=== PATIENT | female | born 1985 | race Caucasian/White ===

== ENCOUNTER 2017-07-11 16:14 | Emergency (ER) | payer BC ==
[~2017-07-11] VITALS: Ht 165.1 cm; Wt 84.8 kg
[~2017-07-11 16:14] MED LIST: ALBU4TAB10 PO
[2017-07-11 16:16] VITALS: TEMP 37; Ht 165.1 cm; Wt 84.8 kg
[2017-07-11] MEDS ORDERED: VNTHFA/IN INH (16:37)
[2017-07-11] MEDS ORDERED: PRED-301 PO (16:38)
[2017-07-11] MEDS ORDERED: METH2.5S SC (16:44)
[2017-07-11] MEDS ORDERED: ADVIN25/60 INH (16:44)
[2017-07-11] MEDS ORDERED: [UNRECOGNIZED DRUG - CODE] PO (16:45)
--- NOTE | 2017-07-11 17:35 | EMERGENCY ROOM VISIT NOTE ---
History First contact with patient: 17:04 Chief Complaint: ARM PAIN Stated Complaint: TINGLING,PINS AND NEEDLES FROM ELBOW TO FINGERTIPS History of Present Illness The patient is a 31 year old female who presents to the Emergency Room with complaints of tingling and numbness of both arms, hands and fingers. She also reports notable pain in the wrists and elbows. She denies any pain extending into the upper arms, shoulders or neck. The patient reports a long history of rheumatoid arthritis. She is currently under the management of Dr. Vidal. She is currently on methotrexate and chronic prednisone. Should has had prior RA flares. 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 Her symptoms worsened after doing so. The patient is a side sleeper, and usually sleeps with her arms under and over her pillow. She denies any recent trauma to the elbows, forearms or wrists. She reports that most of the tingling and numbness is along the ulnar aspect of the elbow, forearm and hand. She reports weakened enterprise business architect strength bilaterally. The patient denies any other recent infections, fevers or chills. The patient is [id number], and rates her discomfort a 7 out of 10. Review of Systems 10 system review was performed and was negative except for pertinent positives and negatives as indicated in history of present illness Past Medical/Surgical History Medical Problems: (1) Asthma, Unspecified (2) Rheumatoid arthritis Surgical Problems: (1) History of appendectomy (2) History of cholecystectomy Family History FH: cancer FH: diabetes mellitus FH: hypertension Social History Smoking Status: Former Smoker Alcohol Use: none Marital Status: single, in relationship Housing Status: lives with significant other Occupation Status: employed Current/Historical Medications Scheduled Methotrexate (Xatmep), 1 DOSE SC WK Scheduled PRN Albuterol Hfa (Ventolin Hfa), 2-4 PUFFS INH Q6H PRN for SOB/Wheezing Aspirin (Flip Aspirin), 3 TABS PO DAILY PRN for Pain or Fever Fluticasone Prop/Salmeterol (Advair Diskus 250/50 60 Dose), 1 PUFF INH BID PRN for SOB/Wheezing Prednisone (Prednisone), 5-20 MG PO DAILY PRN for Pain Physical Exam Vital Signs Date Time Temp Pulse Resp B/P (MAP) Pulse Ox O2 Delivery O2 Flow Rate FiO2 07/11/17 16:16 37.0 99 16 142/91 99 Room Air Physical Exam CONSTITUTIONAL: Healthy and well nourished. Alert and oriented X 3 with positive affect. Patient appears in mild discomfort. HEENT: Normocephalic, atraumatic. Pupils equal, round and reactive. NECK: Full active range of motion without discomfort. RESPIRATORY: Clear to auscultation bilaterally with no wheezing, crackles, rhonchi or stridor. CARDIOVASCULAR: Regular rate and rhythm with no murmurs, rubs or gallops. MUSCULOSKELETAL: Examination shows mild edema of bilateral arms, wrists and hands. Positive compression test and positive Tinel at the cubital tunnel. Positive Phalen's and positive Tinel at the carpal canal. Resisted extension of the wrists also causes discomfort through the dorsal forearms and lateral elbows bilaterally. I do not appreciate any erythema or increased warmth to palpation of the wrists or elbows. Hand enterprise business architect strength is 3 out of 5 and symmetric bilaterally. INTEGUMENTARY: No rash or other significant dermatologic conditions noted. NEUROLOGIC: Cranial nerves II-XII grossly intact. No focal neurologic deficits noted. Bilateral hand and fingers are sensory intact. Medical Decision & Procedures ED Course Patient history and physical exam were performed. Nurse's notes were reviewed. Vital signs were reviewed, showing an elevated blood pressure of 142/91. She refused any analgesics while in the emergency department. History and clinical exam findings suggestive of multiple etiologies, including overuse syndrome, ulnar neuritis, carpal tunnel syndrome and possible rheumatoid flare. The patient was encouraged to intermittently apply ice to areas of discomfort. She was also encouraged to alternate ibuprofen and Tylenol for pain relief. She may wear wrist braces to also help with her symptoms. The patient was provided a note for no work for the next 48 hours. 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 The patient was happy with plan of care, voice understanding of all discharge instructions, and rated her discomfort a 6 out of 10 at the conclusion of my exam. I did encourage the patient to follow-up with her PCP for blood pressure recheck. Medical Decision See previous section. The patient denies any trauma, therefore I do not feel that further imaging studies are warranted. I also do not feel that any emergent laboratory studies are needed today. Medication Reconcilliation Current Medication List: was personally reviewed by me Blood Pressure Screening Patient's blood pressure: Elevated blood pressure Impression Primary Impression: Bilateral ulnar neuritis Additional Impressions: Bilateral arm tendinitis Rheumatoid arthritis Elevated blood pressure reading Departure Information Dispostion Home / Self-Care Referrals Josette Vidal MD Forms HOME CARE DOCUMENTATION FORM, IMPORTANT VISIT INFORMATION Patient Instructions My [facility] Additional Instructions Try to intermittently apply ice to areas of discomfort. You may also want to wear a wrist braces for additional relief. Ibuprofen 800 mg and/or Tylenol 1000 mg every 8 hours. You may also alternate these medications for more effective pain relief: Ibuprofen --4 HRS--> Tylenol --4 HRS--> ibuprofen --4 HRS--> Tylenol .... Follow-up with your embossing machine tender for further reevaluation. FOR WORK: Please excuse from work for the next 2 days, Wed-07/12-07/13/17. Problem Qualifiers Additional Impressions: Rheumatoid arthritis Rheumatoid arthritis location: multiple sites Rheumatoid factor presence: unspecified presence Qualified Codes: M06.9 - Rheumatoid arthritis, unspecified
[2017-07-11 17:52] VITALS: BP 115/96; PULSE 77; O2SAT 96
== END 2017-07-11 17:53 | disposition home or self-care (01) ==
LOC: C.EDB 16:15 → C.EDD 17:53
DX: G56.83 Other specified mononeuropathies of bilateral upper limbs (principal); M77.9 Enthesopathy, unspecified; M06.9 Rheumatoid arthritis, unspecified; R03.0 Elevated blood-pressure reading, without diagnosis of hypertension; J45.909 Unspecified asthma, uncomplicated; Z79.52 Long term (current) use of systemic steroids; Z90.49 Acquired absence of other specified parts of digestive tract; Z87.891 Personal history of nicotine dependence; Z83.3 Family history of diabetes mellitus; Z82.49 Family history of ischemic heart disease and other diseases of the circulatory system

== ENCOUNTER 2019-01-17 02:18 | Inpatient (IN) ==
[2019-01-17] MEDS ORDERED: PENICILLIN G POTASSIUM 6 MU in DEXTROSE 5% 250 ML IV STA (03:39)
[2019-01-17] MEDS ORDERED: OXYTOCIN 30 UNITS/500 ML BAG IV PRN ×3 (03:39→09:13)
[2019-01-17] MEDS ORDERED: FLUCONAZOLE 50 MG TAB PO ONE (03:39)
[2019-01-17] MEDS ORDERED: PENICILLIN G POTASSIUM 3 MU in DEXTROSE 5% 100 ML IV PRN (03:39)
[2019-01-17] MEDS ORDERED: LACTATED RINGER'S 1,000 ML IV ONE (03:52)
--- NOTE | 2019-01-17 03:52 | History & Physical Report ---
Date of Service January 17, 2019 Assessment & Plan (1) Amniotic fluid leaking: (2) Spontaneous rupture of amniotic membranes: 33 yo at 36.6 wks with PPROM at 0145 VSS Afebrile Early labor with ctxs Abundant candidal d/c Polyhydramnios Plan admit, IVF, monitor, Diflucan tb, expectant management Bed rest, SCD's Continue to monitor (3) Vagina, candidiasis: (4) Polyhydramnios affecting in third trimester: History of Present Illness Chief Complaint: Leaking fluids Primary Care Provider: Rudy Ortiz MD Patient is a 33 yo at 36.6 wks who woke up with gush of fluids leaking at 0145 am and then another gush in BR It has been clear Started to have ctxs after she came here No VB/ Fever/ chills/ VITAL/ N&V +FM's Her has been complicated by 1) Polyhydramnios, last MATTHIAS was 31 cm on 01/10, vertex 2) RA, on prednisone 3) Thrombocytosis 4) Unkown GBS 5) Obesity Allergies Allergy/AdvReac Type Severity Reaction Status Date / Time mivacurium Allergy Severe HIVES, Unverified 07/11/17 16:36 ITCHING Sulfa (Sulfonamide Allergy Unknown Unverified 07/11/17 16:36 Antibiotics) Home Medications Home Medications Medication Instructions Recorded Confirmed Type PNV cmb#95-ferrous fumarate-FA 1 tab PO DAILY 01/17/19 01/17/19 History [] albuterol sulfate 1 puff INHALATION Q6H PRN 01/17/19 01/17/19 History prednisone 5 mg PO TID 01/17/19 01/17/19 History Patient History Medical History Rheumatoid arthritis Surgical History History of appendectomy History of cholecystectomy Social History 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: [place] 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 Beliefs That Will Affect Care: None marital status: Single Current Living Situation: Significant Other Other Information That Helps Us Care for You: No Feels Safe at Home: Yes Safety Concerns: Feels Safe At This Time Smoking Status: Never smoker Do You Dip or Chew Tobacco: No ; Second Hand Exposure: No ; Hx Alcohol Use: No Hx Substance Use: No OB History FT in 2008 2 SAB [employer] WORK[employer] History No h/o HSV/ Chlamydia/ GC Review of Systems All systems reviewed & are unremarkable except as noted in HPI & below Physical Exam Constitutional: WD/WN, vitals as above well developed and well nourished NAD Gastrointestinal (Abdomen): Abd: soft, NT gravid Genitourinary: SSE: Abundant candidal d/c grossly ruptured, Ferning + on slide Cervix: 3-4 cm/ 50%/ -4, ballotable head, FHR accel after VE Results & Data Vital Signs (Past 12 Hours) Vital Signs Temp Pulse Resp BP 01/17/19 02:41 37.2 C 98 H 18 114/69 01/17/19 02:35 98 H 114/69 Code Status & VTE Plan VTE Prophylaxis Plan VTE Prophylaxis will be ordered: Yes Monitoring External Monitor 130'S, accels+, moderate variability, had small variable decels with spontaneous recovery Tocodynamometer irregular ctxs q 2-5 min
--- NOTE | 2019-01-17 04:03 | Obstetrical Progress Note ---
Date of Service January 17, 2019 Subjective Bed side US performed: Vertex, OP, FM's, breathing seen, AFV normal Patient states ctxs are irregular not very often, agrees with Oxytocin if not in labor/ change in 2 hours All questions were answered Results & Data Vital Signs (Past 12 Hours) Vital Signs Temp Pulse Resp BP 01/17/19 02:41 37.2 C 98 H 18 114/69 01/17/19 02:35 98 H 114/69
[2019-01-17 04:07] LABS: Hematocrit (blood only) 33.7 % (37-47); Mean Corpuscular Hemoglobin 28.1 pg (25-34); Mean Platelet Volume 9.6 fL (7.4-10.4); Platelet Count 454 K/uL (130-400); RDW Coefficient of Variation 15.3 % (11.5-14.5); Red Blood Count 3.92 M/uL (4.2-5.4)
[2019-01-17 04:10] LABS: Mean Corpuscular Hgb Conc 32.6 g/dL (32-36)
[2019-01-17] MEDS: LACTATED RINGER'S 1,000 ML IV PRN ×2 (04:15→08:00)
[2019-01-17] MEDS ORDERED: BUPIVACAINE 0.25% 30 ML VIAL ONE (06:11)
[2019-01-17] MEDS ORDERED: ePHEDrine sulfate 50 MG/ML AMP ONE (06:11)
[2019-01-17] MEDS ORDERED: fentaNYL citrate 100 MCG/2 ML VIAL ONE (06:12)
[2019-01-17] MEDS ORDERED: fentaNYL 2MCG/ML ROPIV 1.25MG/ML 100 ML BAG EPI ONE (06:12)
[2019-01-17] MEDS ORDERED: NALOXONE HCL 1 MG in SODIUM CHLORIDE 0.9% 1000ML 1,000 ML IV PRN (06:19)
[2019-01-17] MEDS ORDERED: NALBUPHINE HCL INJ 10 MG/ML AMP IV PRN (06:19)
[2019-01-17] MEDS ORDERED: DiphenhydrAMINE HCL 50 MG/ML VIAL IV PRN (06:19)
[2019-01-17] MEDS ORDERED: ePHEDrine sulfate 50 MG/ML AMP IV PRN (06:19)
[2019-01-17] MEDS ORDERED: fentaNYL 2MCG/ML ROPIV 1.25MG/ML 100 ML BAG EPI PRN (06:19)
[2019-01-17] MEDS ORDERED: NALOXONE HCL 0.4 MG/1 ML VIAL/CARP IV PRN (06:19)
[2019-01-17] MEDS ORDERED: ONDANSETRON INJ 2 MG/ML 2 ML VIAL IV PRN (06:19)
--- NOTE | 2019-01-17 06:22 | Anesthesiology Consultation ---
Date of Service January 17, 2019 Assessment & Plan (1) Encounter for pre-operative examination: Chart Review Chart Review: Patient NOT seen in Pre Admission Testing and Acceptable Risk for Labor Epidural Consults Requested none History Height/Weight Height: 5 ft 5 in Weight: 101.151 kg Allergies Allergy/AdvReac Type Severity Reaction Status Date / Time Sulfa (Sulfonamide Allergy Unknown Unknown Unverified 01/17/19 06:28 Antibiotics) azithromycin Allergy Rash Verified 01/17/19 06:29 Medications Home Medications Medication Instructions Recorded Confirmed Last Taken PNV cmb#95-ferrous fumarate-FA 1 tab PO DAILY 01/17/19 01/17/19 01/16/19 [] albuterol sulfate 1 puff INHALATION Q6H PRN 01/17/19 01/17/19 Unknown prednisone 5 mg PO TID 01/17/19 01/17/19 01/16/19 Active Medications Generic Name Dose Route Start Last Admin Trade Name Freq PRN Reason Stop Dose Admin Lactated Ringer's 1,000 mls @ 150 mls/hr 01/17/19 03:39 01/17/19 04:16 Lr IV 01/19/19 03:38 0 mls/hr .[id number] PRN Infusion L&D Protocol Protocol Past Medical History Medical History Rheumatoid arthritis Exercise / Class Metabolic Activity II 4-5 Yardwork/Stairs/Walk up hill Past Surgical History Surgical History History of appendectomy History of cholecystectomy Past Anesthesia History No Hx of Anesthesia Complications and No Family Hx of Anesthesia Complications History of PONV No Hx of PONV and No Hx of Motion Sickness Social History Smoking Status: Never smoker Do You Dip or Chew Tobacco: No Hx Alcohol Use: No Hx Substance Use: No Physical Exam Vital Signs Last Vital Signs Temp 36.9 C 01/17/19 04:45 Pulse 81 01/17/19 06:38 Resp 18 01/17/19 02:41 BP 115/75 01/17/19 06:38 Pulse Ox 95 01/17/19 06:35 Testing Laboratory Results 01/17/19 03:47
[2019-01-17] MEDS ORDERED: METHYLERGONOVINE MALEATE 0.2 MG/ML AMP ONE (08:58)
[2019-01-17] MEDS ORDERED: ACETAMINOPHEN 325 MG TAB PO PRN (09:13)
[2019-01-17] MEDS ORDERED: HYDROCORTISONE ACETATE 25 MG SUPP PR PRN (09:13)
[2019-01-17] MEDS ORDERED: METHYLERGONOVINE MALEATE 0.2 MG/ML AMP IM ONE (09:13)
[2019-01-17] MEDS ORDERED: DIPHTHERIA/TETANUS/PERTUSSIS 0.5 ML SYR/VIAL IM ONE (09:13)
[2019-01-17] MEDS ORDERED: SUPERCREAM 0.870% 15 GM JAR EXT PRN (09:13)
[2019-01-17] MEDS ORDERED: BISACODYL 10 MG SUPP PR PRN (09:13)
[2019-01-17] MEDS ORDERED: BENZOCAINE 20% AER SPR 82.5 GM CAN EXT PRN (09:13)
--- NOTE | 2019-01-17 09:55 | Anesthesia Procedure Note ---
Date of Service January 17, 2019 Anesthesia Post Epidural Note Vital Signs Vital Signs: Temp Pulse Resp BP Pulse Ox 36.8 C 75 18 127/68 97 01/17/19 07:15 01/17/19 09:53 01/17/19 08:00 01/17/19 09:53 01/17/19 08:50 Notes Mental Status: alert / awake / arousable Nausea / Vomiting: adequately controlled Pain: adequately controlled Airway Patency, RR, SpO2: stable & adequate BP & HR: stable & adequate Hydration State: stable & adequate Neuraxial Anesthesia: was administered and sensory block is resolving Anesthetic Complications: no major complications apparent Epidural: Removed without complications and With tip intact
[2019-01-17] MEDS: predniSONE 5 MG TAB PO SCH (12:15)
--- NOTE | 2019-01-17 12:34 | Delivery Summary ---
DATE OF OPERATION: 01/17/2019 The patient delivered a live male infant in left occiput anterior presentation. There was a loose nuchal cord which was easily reduced. was delivered. Cord was clamped and cut after 1 minute. Cord blood was obtained. Infant was handed over to the awaiting pediatric team. Placenta was spontaneously delivered. Grossly normal looking placenta with 3- vessel cord. Placenta sent to pathology for analysis because of history of polyhydramnios. Inspection of the perineum showed labial laceration on the right side which was repaired with 2-0 Vicryl. There was good hemostasis post repair. Estimated blood loss was 700 mL. All instruments were removed from the vagina and accounted for x2 including sponge, needle and retractors. Baby and mother doing well at recovery. [facility]
[2019-01-17] MEDS: IBUPROFEN 600 MG TAB PO PRN ×2 (14:05→18:50)
[2019-01-17] MEDS: DOCUSATE SODIUM 100 MG CAP PO SCH (20:42)
[2019-01-18] MEDS: IBUPROFEN 600 MG TAB PO PRN ×2 (03:50→14:39)
[2019-01-18 06:29] LABS: Hematocrit (blood only) 30.5 % (37-47); Mean Corpuscular Hemoglobin 28.7 pg (25-34); Mean Corpuscular Hgb Conc 32.8 g/dL (32-36); Mean Corpuscular Volume 87.4 fL (80-100); Mean Platelet Volume 9.3 fL (7.4-10.4); Platelet Count 391 K/uL (130-400); RDW Coefficient of Variation 15.3 % (11.5-14.5); RDW Standard Deviation 48.4 fL (36.4-46.3); Red Blood Count 3.49 M/uL (4.2-5.4); White Blood Count 23.25 K/uL (4.8-10.8)
[2019-01-18] MEDS: DOCUSATE SODIUM 100 MG CAP PO SCH ×2 (07:34→19:58)
[2019-01-18] MEDS: PRENATAL VITAMIN 1 TAB PO SCH (07:34)
[2019-01-18] MEDS: FERROUS SULFATE 325 MG TAB PO SCH (07:34)
--- NOTE | 2019-01-18 08:28 | Obstetrical Progress Note ---
Date of Service January 18, 2019 Physical Exam Physical Exam: abdomen soft and non tender vaginal bleeding scant to moderate hgb 10 no calf tenderness ambulating well Results & Data Vital Signs (Past 12 Hours) Vital Signs Temp Pulse Resp BP Pulse Ox 01/18/19 07:46 36.7 C 73 18 97/64 L 96 01/18/19 03:45 36.6 C 64 18 97/62 L 01/17/19 23:00 36.8 C 69 18 107/68
[2019-01-18] MEDS: predniSONE 5 MG TAB PO SCH (09:24)
[2019-01-18] MEDS ORDERED: BISACODYL 5 MG TABEC PO SCH (20:00)
[2019-01-19] MEDS: IBUPROFEN 600 MG TAB PO PRN ×2 (01:43→12:30)
[2019-01-19 07:59] LABS: Hematocrit (blood only) 30.2 % (37-47); Hemoglobin 9.6 g/dL (12.0-16.0)
[2019-01-19 08:15] VITALS: O2SAT 97
[2019-01-19] MEDS: DOCUSATE SODIUM 100 MG CAP PO SCH (08:26)
[2019-01-19] MEDS: PRENATAL VITAMIN 1 TAB PO SCH (08:26)
[2019-01-19] MEDS: FERROUS SULFATE 325 MG TAB PO SCH (08:26)
[2019-01-19] MEDS: predniSONE 5 MG TAB PO SCH (08:27)
--- NOTE | 2019-01-19 10:54 | Obstetrical Progress Note ---
Date of Service January 19, 2019 Subjective doing well tolerating diet ambulating well Physical Exam Constitutional: WD/WN, vitals as above comfortable fundus firm for discharge Results & Data Vital Signs (Past 12 Hours) Vital Signs Temp Pulse Resp BP Pulse Ox 01/19/19 08:00 36.8 C 66 18 99/63 L 97 01/18/19 23:30 36.7 C 75 20 101/63 Laboratory Results Laboratory Results - last 24 hr 01/19/19 07:26 Hgb 9.6 L Hct 30.2 L
[2019-01-19 16:19] VITALS: BP 124/76; PULSE 73; TEMP 98.1
== END 2019-01-19 20:00 | disposition home or self-care (01) | DRG 806 ==
LOC: OPB 02:18 → 4S1 02:24 → 4S2 12:09